=== PATIENT | male | born 1935 | race Caucasian/White ===

== ENCOUNTER 2016-10-07 11:03 | Inpatient (IN) | payer MEDICARE, BC ==
--- NOTE | 2016-10-07 11:52 | RAD ---
INDICATION: Fall COMPARISON: None TECHNIQUE: Noncontrast axial source images were acquired from the skull base to the vertex. FINDINGS: Ventricles/sulci: There is age related cortical atrophy with compensatory dilatation of the CSF spaces. Brain parenchyma: There is minor periventricular and subcortical white matter change compatible with chronic ischemia. Intracranial hemorrhage:None. Extra-axial spaces: There are no abnormal extra axial fluid collections or evidence of extra-axial mass. Calvarium: There is no calvarial fracture or other calvarial abnormality. Scalp: There is no evidence of scalp or extracalvarial soft tissue abnormality. Paranasal sinuses/mastoid: The paranasal sinuses and mastoid air cells are clear. Other: None. IMPRESSION: NO ACUTE INTRACRANIAL FINDINGS
--- NOTE | 2016-10-07 11:55 | RAD ---
INDICATION: Fall. Neck pain COMPARISON: None TECHNIQUE: Noncontrast axial source images was performed from the skull base to the thoracic inlet. Coronal and and sagittal reformatted images were generated. There is some degree of artifact produced by dental amalgam FINDINGS: Vertebrae: There is no fracture or acute focal bony lesion. There is advanced degenerative disc disease from C3 through C7. There is disc space narrowing with endplate sclerosis, anterior vertebral spurring, as a process spurring, and facet arthropathy. There is multilevel foraminal narrowing. Alignment: The craniocervical junction appears normal. There is cervical spine straightening Central Canal: There are no significant CT abnormalities of the central canal or foramina. MR imaging is a more sensitive method to evaluate the canal and foramina. Intervertebral disc spaces: The disc spaces are maintained. Brain: The visualized brain appears unremarkable. Soft tissues: The visualized soft tissue elements of the neck are unremarkable. The prevertebral soft tissues appear normal. The lung apices are clear. IMPRESSION: ADVANCED OSTEOARTHRITIC CHANGE. NO ACUTE FINDINGS.
--- NOTE | 2016-10-07 13:12 | RAD ---
INDICATION: Right knee pain COMPARISON: None TECHNIQUE: AP and crosstable lateral lateral views were obtained. FINDINGS: The bony structures, joint spaces, and soft tissues are normal for age. IMPRESSION: NEGATIVE EXAMINATION.
--- NOTE | 2016-10-07 13:13 | RAD ---
INDICATION: Right femoral pain. Fall. COMPARISON: None TECHNIQUE: AP and lateral views were obtained. FINDINGS: There is no CT evidence of acute traumatic injury. There is right hip prosthesis which appears normally seated. The soft tissues are normal. IMPRESSION: NO ACUTE BONY FINDINGS.
--- NOTE | 2016-10-07 13:14 | PN ---
Progress Note - Progress Note Note: I was asked to repair a laceration to this patient's left elbow. There is a 1cm long, 4mm wide, 4 mm deep linear laceration to the lateral proximal forearm, 1 inch below the olecranon. The area was cleaned with 200 cc of NS. 2 ccs of 2.0 lidocaine was injected into the wound for numbing. The area was draped and one 4.0 polysorb deep stitch was applied. Then 3 nylon 4.0 stitches were placed. The area was cleaned, and dressed with zeroform, clean gauze, and paper tape. The patient tolerated the procedure well.
--- NOTE | 2016-10-07 13:32 | RAD ---
INDICATION: Right elbow pain. Fall. COMPARISON: None TECHNIQUE: AP and lateral views were obtained. FINDINGS: The bony structures, joint spaces, and soft tissues are normal for age. IMPRESSION: NO ACUTE BONY FINDINGS.
[2016-10-07 15:02] LABS: Urine Bilirubin Negative (Negative); Urine Glucose Negative (Negative); Urine Nitrite Negative (Negative)
[2016-10-07] MEDS ORDERED: Acetaminophen TAB* 325 MG PO PRN (16:41)
[2016-10-07 16:42] LABS: BUN/Creatinine Ratio 16.3 (8-20); C Reactive Protein 1.27 mg/L (< 5.00); EGFR African American 88.2 (>60); EGFR Non-African American 68.5 (>60); Globulin 2.7 g/dL (2-4); Potassium 3.8 mmol/L (3.5-5.0); Total Bilirubin 1.1 mg/dL (0.2-1.0); Total Protein 6.7 g/dL (6.4-8.9)
[2016-10-07 16:48] LABS: Hematocrit 47 % (42-52); Hemoglobin 15.6 g/dl (14.0-18.0); Mean Corpuscular HGB Conc 34 g/dl (31-36); Mean Corpuscular Hemoglobin 31 pg (27-31); Mean Corpuscular Volume 93 fL (80-94); Mean Platelet Volume 9 um3 (7.4-10.4); Red Blood Count 4.98 10^6/ul (4.0-5.4); Red Cell Distribution Width 13 % (10.5-15); White Blood Count 12.1 10^3/ul (3.5-10.8)
[2016-10-07] MEDS: Atorvastatin* 10 MG TAB PO SCH (17:55)
--- NOTE | 2016-10-07 17:55 | ED ---
I, Oh,Chata, scribed for Timoteo Pathak MD on 10/07/16 at 1124 . Head Injury - HPI Summary HPI Summary: This 80 y/o male presents to ED via ambulance after falling down the step backward while climbing stairs at [employer]. A fall was witnessed by daughter present at bedside. Daughter and pt deny any LOC after the fall. Pt currently denies any pain, n/v, SOB & CP at the time of fall, back pain, or neck pain. He does report RLE upper thigh pain after the fall. and daughter present at bedside and express concerns on head injury requesting CT brain study. PMHx consists of Stage 3 AD, prostate CA, right total hip replacement, and HLD. Pt does not take any blood thinner but does take baby ASA. FHx is positive for CVA. Family members are unsure if pt is UTD with tetanus. - History Of Current Complaint Chief Complaint: EDHeadInjury Stated Complaint: FALL Time Seen by Provider: 10/07/16 11:09 Hx Obtained From: Patient, Family/Assistant Women'S Rowing Coach - daughter and present at bedside Mechanism Of Injury: Blunt Trauma Onset/Duration: Started Minutes Ago, Traumatic, Resolved Onset of Pain: Immediate Location of Head Injury: Other: - None per pt Associated Signs And Symptoms: Negative Anticoagulant Therapy: ASA - baby ASA - Allergies/Home Medications Allergies/Adverse Reactions: Allergies Allergy/AdvReac Type Severity Reaction Status Date / Time Mirtazapine AdvReac Altered Verified 10/07/16 16:39 Mental Status [place] Apple Allergy See Comment Uncoded 10/07/16 16:16 Home Medications: Home Medications Aspirin [Aspirin Adult Low Strengt] 81 mg PO DAILY WITH MEAL 10/07/16 [History Confirmed 10/07/16] Donepezil Hydrochloride [Aricept 10 MG TAB] 10 mg PO DAILY WITH MEAL 10/07/16 [ History Confirmed 10/07/16] Fluoxetine HCl 40 mg PO DAILY WITH MEAL 10/07/16 [History Confirmed 10/07/16] Memantine TAB* [Namenda TAB*] 10 mg PO BID 10/07/16 [History Confirmed 10/07/16] Multiple Vitamins W/ Minerals [Multivitamin Adults] 1 tab PO DAILY WITH MEAL 03/17 [History Confirmed 10/07/16] Simvastatin TAB(NF) [Zocor(NF)] 20 mg PO 1700 10/07/16 [History Confirmed ] PMH/Surg Hx/FS Hx/Imm Hx Cardiovascular History: Reports: Hx Hypercholesterolemia Neurological History: Reports: Other Neuro Impairments/Disorders - stage 3 alzheimer - Cancer History Cancer Type, Location and Year: prostate CA Infectious Disease History: Denies: Traveled Outside the [place] in Last 30 Days - Family History Known Family History: Positive: Other - CVA - Social History Lives: With Family Hx Substance Use: No Substance Use Type: Reports: None Review of Systems Negative: Fever Negative: Chest Pain Negative: Shortness Of Breath Positive: Other - head injury. RLE upper thigh pain Negative: Syncope All Other Systems Reviewed And Are Negative: Yes Physical Exam - Summary Physical Exam Summary: VITAL SIGNS: Reviewed. GENERAL: Patient is a well developed and nourished male who is lying comfortable in the stretcher. Patient is not in any acute respiratory distress. HEAD AND FACE: No signs of trauma. No ecchymosis, hematomas or skull depressions. No sinus tenderness. EYES: PERRLA, EOMI x 2, No injected conjunctiva, no nystagmus. EARS: Hearing grossly intact. Ear canals and tympanic membranes are within normal limits. No Hemotympanum. MOUTH: Oropharynx within normal limits. NECK: Supple, trachea is midline, no adenopathy, no JVD, no carotid bruit, no c- spine tenderness, neck with full ROM. CHEST: Symmetric, no tenderness at palpation LUNGS: Clear to auscultation bilaterally. No wheezing or crackles. CVS: Regular rate and rhythm, S1 and S2 present, no murmurs or gallops appreciated. ABDOMEN: Soft, non-tender. No signs of distention. No rebound no guarding, and no masses palpated. Bowel sounds are normal. EXTREMITIES: FROM in all major joints, no edema, no cyanosis or clubbing. Slight abrasion on the lateral aspect of the knee. Mild tenderness on the lateral aspect of the thigh . Small laceration in the right elbow. NEURO: Alert and oriented x 3. No acute neurological deficits. Speech is normal and follows commands. SKIN: Dry and warm Triage Information Reviewed: Yes Vital Signs On Initial Exam: Initial Vitals Temp Pulse Resp BP Pulse Ox 98.6 F 66 18 117/57 96 10/07/16 11:07 10/07/16 11:07 10/07/16 11:07 10/07/16 11:07 10/07/16 11:07 Vital Signs Reviewed: Yes Procedures - Laceration/Wound Repair 1 Location: upper extremity - right elbow -- done by RAMONA Hathaway. Please see the progress note. Diagnostics - Vital Signs Vital Signs Temp Pulse Resp BP Pulse Ox 10/07/16 11:07 98.6 F 66 18 117/57 96 - Laboratory Result Diagrams: 10/07/16 16:15 10/07/16 16:15 Lab Statement: Any lab studies that have been ordered have been reviewed, and results considered in the medical decision making process. - Radiology Right Knee Xray Interpretation: No Acute Changes Radiology Interpretation Completed By: Radiologist Right Femur Xray Interpretation: No Acute Changes Radiology Interpretation Completed By: Radiologist Right Elbow Xray Interpretation: No Acute Changes Radiology Interpretation Completed By: Radiologist - CT Brain CT Interpretation: No Acute Changes CT Interpretation Completed By: Radiologist C-spine CT Interpretation: No Acute Changes - Advanced OA changes. No acute disease. CT Interpretation Completed By: Radiologist Re-Evaluation - Re-Evaluation First Eval Re-Evaluation Time: 15:31 Comment: MD in room to update pt and on imaging results and discuss plan of care. Pt had difficulty ambulate around ED, and they are concerned that pt won't be able to care for himself. Second Eval Re-Evaluation Time: 15:51 Comment: MD in room to update pt and on hospitalist consultation. Head Injury Course/Dx Assessment/Plan: This 80 y/o male presents to ED via ambulance after falling down the step backward while climbing stairs at [employer]. A fall was witnessed by daughter present at bedside. Daughter and pt deny any LOC after the fall. Pt currently denies any pain, n/v, SOB & CP at the time of fall, back pain, or neck pain. He does report RLE upper thigh pain after the fall. and daughter present at bedside and express concerns on head injury requesting CT brain study. PMHx consists of Stage 3 AD, prostate CA, right total hip replacement, and HLD. Pt does not take any blood thinner but does take baby ASA. FHx is positive for CVA. Labs wnl except for increase WBC 12.1. Head CT: No acute intracranial pathology. C spine CT: Advanced osteoarthritis changes. No acute findings. Knee X-ray: Negative for an acute Fracture. Femur X ray: Negative for an acute Fracture. ELbow X-ray: Negative for an acute Fracture. In the ED course laceration was repaired By Ms. Beto GREENE. Please see her note. He was given a Boostrix since patient does not remember when was his las vaccine. After negative X-rays we tried to ambulate the patient and he had a lot of pain was not able to ambulate. He was given Morphine and Toradol for the pain. He lives in an apartment that he has to walk 9 stairs and he is unable to get there. I discuss my physical exam, findings and test results with Dr. Lepe from the hospitalist services and she agrees to admit patient to his services. Patient is hemodynamically stable alert and oriented x 2. (His baseline) - Diagnoses Differential Diagnosis/HQI/PQRI: Cervical Sprain, Concussion Without LOC, Contusion, Hematoma, Intracranial Bleed Provider Diagnoses: Fall, Head contusion, Contusion of right knee, Contusion of right elbow, Unable to ambulate - Physician Notifications Discussed Care Of Patient With: Dr. Lepe (Hospitalist) at 1534 PM Instructed by Provider To: Admit As Inpatient Discharge - Discharge Plan Condition: Stable Disposition: ADMITTED TO [facility] The documentation as recorded by the Iker forman Soohyun accurately reflects the service I personally performed and the decisions made by me, Timoteo Pathak MD.
[2016-10-07] MEDS: Memantine TAB* 10 MG PO SCH (21:01)
[2016-10-07] MEDS: Heparin VIAL(*) 5000 UNITS/ML VIAL (FIVE THOUSAND) SUBCUT SCH (21:01)
--- NOTE | 2016-10-08 00:34 | HP ---
HISTORY AND PHYSICAL: DATE OF ADMISSION: 10/07/16 TIME OF EVALUATION: 4:30 p.m. PRIMARY CARE PROVIDER: Dr. Tello. CHIEF COMPLAINT: "He cannot walk" as per . HISTORY OF PRESENT ILLNESS: Mr. Martinez is an 80-year-old male with past medical history of Alzheimer's dementia, prostate CA who presented to the emergency room after sustaining a fall. The patient is pleasantly confused and cannot provide any history and so, his is the one giving information. She states that the patient is confused at baseline and he lives at [facility]. He has a maid that comes twice a day to assist with medication and self-care. Today, his daughter went to pick him up to go to [employer] and when they were going up the front steps of the [employer], the patient lost balance and fell backwards, hitting his head on the way down. The patient states that he does not remember falling and he only remembers being here in the hospital. He was evaluated in the emergency room and he was feeling better, but when they tried to ambulate with him in the emergency room, he was unable to bear weight to his right lower extremity due to pain. So, the hospitalist service was consulted for evaluation. He denies any complaints of pain at this time. No dizziness. No chest pain. No shortness of breath or any other complaints. PAST MEDICAL HISTORY: 1. Alzheimer's dementia. 2. History of prostate CA, status post prostatectomy. 3. Status post right hip fracture and repair. MEDICATIONS: 1. Aspirin 81 mg p.o. daily with meals. 2. Donepezil 10 mg p.o. daily with meals. 3. Fluoxetine 40 mg p.o. daily with meals. 4. Memantine 10 mg p.o. b.i.d. 5. Multivitamin 1 tablet p.o. daily with meals. 6. Simvastatin 20 mg p.o. daily. ALLERGIES: He is allergic to GRANNY BAKER APPLES and as per , he had altered mental status with MIRTAZAPINE. FAMILY HISTORY: As per , the patient's family had a strong history of stroke and late-onset diabetes. SOCIAL HISTORY: The patient used to smoke a pipe. He quit 2 years ago. The also states that he used to be "fond of wine," but now it is very rarely that he has a small glass. Surrogate decision maker is his , Caty Martinez. Her phone number is [phone] (cellphone) and [phone] (home). Please note that the patient's lives in her private home and the patient lives at [facility]. REVIEW OF SYSTEMS: I am unable to obtain from the patient at this point, but with the help of his , all the pertinent negative and positive findings are in the HPI. PHYSICAL EXAMINATION GENERAL: The patient is a pleasantly confused, elderly male, lying in the ER stretcher, in no acute distress. VITAL SIGNS: Temperature 98.6, heart rate is 66, respiratory rate is 18, oxygen saturation 96% on room air, blood pressure is 117/57. HEENT: Pupils are equal. Moist mucous membranes. CHEST: Breath sounds clear bilaterally with no added sounds. CVS: Normal S1, S2. Regular rate and rhythm. ABDOMEN: Soft, nontender, nondistended. Bowel sounds are present. EXTREMITIES: The patient has a clean dressing to his right elbow. He has some abrasions to his right knee. NEUROLOGIC: He is alert, awake, and oriented x2 to self and place. He is able to move all 4 extremities. LABORATORY AND IMAGING DATA: CBC showed a WBC of 12.1, hemoglobin of 15.6, hematocrit of 47, platelets of 197 with 85% neutrophils. Chemistry was normal with only slight elevation of total bilirubin of 1.1. Urinalysis was also normal. CT of the brain without contrast showed no intracranial findings. Cervical spine CT showed advanced osteoarthritic change, but no acute findings. Right femur x-ray showed that the right hip prosthesis appears normally seated with no acute bony findings. Right knee x-ray was also negative examination and right elbow x-ray showed no acute bony findings. ASSESSMENT AND PLAN: Mr. Martinez is an 80-year-old male with a past medical history of Alzheimer's dementia, prostate cancer, status post prostatectomy, who sustained a mechanical fall today and is unable to bear weight to his right extremity at this point. 1. Right lower extremity pain: The patient's workup was negative for fracture and his pain is likely muscular in nature, but he will be unable to return to his apartment at [facility]. The plan is to have him admitted as observation to the medical floor. He will receive Tylenol for pain management and he will be seen by Physical Therapy in the morning and then further plans will be made. He may be able to return to [facility] or he may require rehab. 2. Dementia: We will continue donepezil, fluoxetine, memantine. 3. DVT prophylaxis: The patient has a score of 5 on the DVT Prophylaxis Risk Assessment Guide and he will be started on subcutaneous heparin and SCDs while in bed. 4. Code status was discussed with his and the patient is a do not resuscitate. A MOLST form was filled out to that effect in his chart. TIME SPENT: Approximately 45 minutes were spent with the patient and interview, medical records review, physical examination to complete this admission, more than half this time was spent [id number] with the patient in coordination of care. CC: Dr. Tello * [id number]/[facility] #: [id number] RENEE
[2016-10-08] MEDS: Heparin VIAL(*) 5000 UNITS/ML VIAL (FIVE THOUSAND) SUBCUT SCH ×3 (06:10→21:23)
[2016-10-08] MEDS ORDERED: FLUOXETINE HCL 60 MG PO SCH (08:30)
[2016-10-08] MEDS ORDERED: DONEPEZIL HYDROCHLORIDE PO SCH (08:30)
[2016-10-08] MEDS ORDERED: MINERALS PO SCH (08:30)
[2016-10-08] MEDS ORDERED: MULTIPLE VITAMINS PO SCH (08:30)
[2016-10-08] MEDS: Memantine TAB* 10 MG PO SCH ×2 (08:37→21:23)
[2016-10-08] MEDS: Donepezil TAB* 5 MG PO SCH (08:37)
[2016-10-08] MEDS: Aspirin Low Dose CHEW TAB* 81 MG PO SCH (08:38)
[2016-10-08] MEDS: FLUoxetine CAP* 20 MG PO SCH (08:38)
[2016-10-08] MEDS: Multivitamins/Minerals TAB PO SCH (08:38)
--- NOTE | 2016-10-08 08:41 | PN ---
Subjective Date of Service: 10/08/16 Interval History: Patient reports much improvement today in pain and in ROM in RLE but continues to have right thigh pain and feels slightly unsteady with ambulation with walker. Per he is not at his baseline yet. Objective Active Medications: Acetaminophen (Tylenol Tab*) 650 mg PO Q6H PRN PRN Reason: pain/fever Aspirin (Aspirin Low Dose Tab*) 81 mg PO DAILY WITH MEAL [facility] Atorvastatin Calcium (Lipitor*) 10 mg PO 1700 [facility] Last Admin: 10/07/16 17:55 Dose: 10 mg Donepezil HCl (Aricept Tab*) 10 mg PO DAILY [facility] Fluoxetine HCl (Prozac Cap*) 40 mg PO DAILY [facility] Heparin Sodium (Porcine) (Heparin Vial(*)) 5,000 units SUBCUT Q8HR [facility] Last Admin: 10/08/16 06:10 Dose: 5,000 units Memantine (Namenda Tab*) 10 mg PO BID [facility] Last Admin: 10/07/16 21:01 Dose: 10 mg Multivitamins/Minerals (Theragran/Minerals Tab*) 1 tab PO DAILY [facility] Vital Signs 10/07/16 10/07/16 10/07/16 17:52 18:37 23:19 Temperature 97.9 F 97.9 F 98.3 F Pulse Rate 57 57 61 Respiratory 16 16 16 Rate Blood Pressure 127/69 127/69 123/89 (mmHg) O2 Sat by Pulse 99 99 98 Oximetry 10/08/16 10/08/16 03:04 07:39 Temperature 97.5 F 97.9 F Pulse Rate 62 54 Respiratory 16 18 Rate Blood Pressure 123/59 113/64 (mmHg) O2 Sat by Pulse 93 97 Oximetry Oxygen Devices in Use Now: None Appearance: 80 yo male laying in bed A+O to self and place but not to time, mild dementia noted in NAD Eyes: No Scleral Icterus, PERRLA Ears/Nose/Mouth/Throat: NL Teeth, Lips, Gums, Mucous Membranes Moist Neck: NL Appearance and Movements; NL JVP Respiratory: Symmetrical Chest Expansion and Respiratory Effort, Clear to Auscultation Cardiovascular: NL Sounds; No Murmurs; No JVD, RRR, No Edema Abdominal: NL Sounds; No Tenderness; No Distention Extremities: No Edema, No Clubbing, Cyanosis, - - full ROM in both LE's. slightly guarded with RLE reporting mild pain in later right thigh, right lateral thigh is tender to palpation Skin: - - R elbow abrasion with CD+I dressing, superficial right knee abrasions Neurological: NL Sensation, NL Muscle Strength and Tone Lines/Tubes/Other Access: Clean, Dry and Intact Peripheral IV Nutrition: Taking PO's Result Diagrams: 10/07/16 16:15 10/07/16 16:15 Assess/Plan/Problems-Billing Assessment: 80 yo male with a PMH of Alzheimer's dementia, prostate cancer s/p prostatectomy, who sustained a mechanical fall and is unable to bear weight to hie RLE. - Patient Problems (1) Pain of right lower extremity Comment: - negative for fracture, suspect contusion. Clinically improving. - PT eval, recommends gait belt and walker at all times with stand by assistance. - unsafe to be DC'd to home at this point, will start standing order acetaminophen and lidoderm patch and reassess this afternoon. (2) Alzheimer disease Comment: - continue fluoxetine, memantine and donepezil (3) DVT prophylaxis Comment: HSQ (4) DNR (do not resuscitate) Status and Disposition: OBV for fall unable to ambulate independently.
[2016-10-08] MEDS ORDERED: Memantine TAB* 5 MG PO SCH (09:00)
[2016-10-08] MEDS ORDERED: Acetaminophen TAB* 325 MG PO PRN (11:44)
[2016-10-08] MEDS: Lidocaine PATCH 5%* 1 PATCH TRANSDERM SCH (14:22)
[2016-10-08] MEDS: Atorvastatin* 10 MG TAB PO SCH (16:18)
[2016-10-08] MEDS ORDERED: Lidocaine Patch REMOVE* 1 NOTE MISC SCH (21:00)
[2016-10-08] MEDS: Lidocaine Patch REMOVE* 1 NOTE MISC PATCH OFF SCH (21:26)
[2016-10-09] MEDS: Heparin VIAL(*) 5000 UNITS/ML VIAL (FIVE THOUSAND) SUBCUT SCH ×3 (05:41→22:03)
[2016-10-09] MEDS: Lidocaine PATCH 5%* 1 PATCH TRANSDERM SCH (09:31)
[2016-10-09] MEDS: Donepezil TAB* 5 MG PO SCH (09:31)
[2016-10-09] MEDS: FLUoxetine CAP* 20 MG PO SCH (09:31)
[2016-10-09] MEDS: Multivitamins/Minerals TAB PO SCH (09:32)
[2016-10-09] MEDS: Aspirin Low Dose CHEW TAB* 81 MG PO SCH (09:32)
[2016-10-09] MEDS: Memantine TAB* 10 MG PO SCH ×2 (09:32→22:02)
--- NOTE | 2016-10-09 11:50 | PN ---
Subjective Date of Service: 10/09/16 Interval History: Patient reports continued pain in right thigh but improving daily. Continues to require walker for safety. Per continues to feel unsafe with him going home to the [facility]. Denies another complaints at this time. Pt reports good appetite. Joking around on exam. Objective Active Medications: Acetaminophen (Tylenol Tab*) 975 mg PO Q8H PRN PRN Reason: pain/fever Last Admin: 10/08/16 14:22 Dose: 975 mg Aspirin (Aspirin Low Dose Tab*) 81 mg PO DAILY WITH MEAL [facility] Last Admin: 10/09/16 09:32 Dose: 81 mg Atorvastatin Calcium (Lipitor*) 10 mg PO 1700 [facility] Last Admin: 10/08/16 16:18 Dose: 10 mg Donepezil HCl (Aricept Tab*) 10 mg PO DAILY [facility] Last Admin: 10/09/16 09:31 Dose: 10 mg Fluoxetine HCl (Prozac Cap*) 40 mg PO DAILY [facility] Last Admin: 10/09/16 09:31 Dose: 40 mg Heparin Sodium (Porcine) (Heparin Vial(*)) 5,000 units SUBCUT Q8HR [facility] Last Admin: 10/09/16 05:41 Dose: 5,000 units Lidocaine (Lidoderm 5% Patch*) 1 patch TRANSDERM DAILY [facility] Last Admin: 10/09/16 09:31 Dose: 1 patch Memantine (Namenda Tab*) 10 mg PO BID [facility] Last Admin: 10/09/16 09:32 Dose: 10 mg Multivitamins/Minerals (Theragran/Minerals Tab*) 1 tab PO DAILY [facility] Last Admin: 10/09/16 09:32 Dose: 1 tab Pharmacy Profile Note (Lidocaine Patch Remove*) 1 note PATCH OFF 2100 [facility] Last Admin: 10/08/16 21:26 Dose: 1 note Vital Signs 10/08/16 10/08/16 10/08/16 19:32 20:00 23:27 Temperature 97.4 F 97.8 F Pulse Rate 55 48 Respiratory 18 16 16 Rate Blood Pressure 109/61 118/52 (mmHg) O2 Sat by Pulse 99 97 Oximetry 10/09/16 10/09/16 10/09/16 03:09 07:34 08:00 Temperature 97.4 F 96.5 F Pulse Rate 52 47 Respiratory 16 16 18 Rate Blood Pressure 127/72 137/65 (mmHg) O2 Sat by Pulse 97 100 Oximetry Oxygen Devices in Use Now: None Appearance: eldelry male A+O to self and place but not to time, in NAD, noted dementia Eyes: No Scleral Icterus, PERRLA Ears/Nose/Mouth/Throat: Mucous Membranes Moist Respiratory: Symmetrical Chest Expansion and Respiratory Effort, Clear to Auscultation Cardiovascular: NL Sounds; No Murmurs; No JVD, RRR, No Edema Abdominal: NL Sounds; No Tenderness; No Distention Extremities: No Edema, No Clubbing, Cyanosis Skin: No Rash or Ulcers, No Nodules or Sclerosis, - - tenderness with palpation to right lateral thigh Neurological: NL Sensation, - - gait is unsteady with walker Lines/Tubes/Other Access: Clean, Dry and Intact Peripheral IV Nutrition: Taking PO's Result Diagrams: 10/07/16 16:15 10/07/16 16:15 Assess/Plan/Problems-Billing Assessment: 80 yo male with a PMH of Alzheimer's dementia, prostate cancer s/p prostatectomy, who sustained a mechanical fall and is unable to bear weight to [facility]. - Patient Problems (1) Pain of right lower extremity Comment: - negative for fracture, suspect contusion. Clinically improving daily. - PT eval, recommends gait belt and walker at all times with stand by assistance. - unsafe to be DC'd to home at this point, continue acetaminophen and lidoderm patch (2) Alzheimer disease Comment: - continue fluoxetine, memantine and donepezil (3) DVT prophylaxis Comment: HSQ (4) DNR (do not resuscitate) Status and Disposition: Inpatient for fall unable to ambulate independently. May require subacute
[2016-10-09] MEDS: Atorvastatin* 10 MG TAB PO SCH (16:02)
[2016-10-09] MEDS: Lidocaine Patch REMOVE* 1 NOTE MISC PATCH OFF SCH (22:02)
[2016-10-10] MEDS: Heparin VIAL(*) 5000 UNITS/ML VIAL (FIVE THOUSAND) SUBCUT SCH ×3 (05:30→21:29)
--- NOTE | 2016-10-10 07:08 | PN ---
Subjective Date of Service: 10/10/16 Interval History: Patient continues to have right thigh pain but states it is improving daily. Was able to ambulate with walker today with PT but still felt a little unsteady. Reports good appetite, tolerating PO. Per he is eating more during his hospitalization compared to at home Objective Active Medications: Acetaminophen (Tylenol Tab*) 975 mg PO Q8H PRN PRN Reason: pain/fever Last Admin: 10/08/16 14:22 Dose: 975 mg Aspirin (Aspirin Low Dose Tab*) 81 mg PO DAILY WITH MEAL [facility] Last Admin: 10/09/16 09:32 Dose: 81 mg Atorvastatin Calcium (Lipitor*) 10 mg PO 1700 [facility] Last Admin: 10/09/16 16:02 Dose: 10 mg Donepezil HCl (Aricept Tab*) 10 mg PO DAILY [facility] Last Admin: 10/09/16 09:31 Dose: 10 mg Fluoxetine HCl (Prozac Cap*) 40 mg PO DAILY [facility] Last Admin: 10/09/16 09:31 Dose: 40 mg Heparin Sodium (Porcine) (Heparin Vial(*)) 5,000 units SUBCUT Q8HR [facility] Last Admin: 10/10/16 05:30 Dose: 5,000 units Lidocaine (Lidoderm 5% Patch*) 1 patch TRANSDERM DAILY [facility] Last Admin: 10/09/16 09:31 Dose: 1 patch Memantine (Namenda Tab*) 10 mg PO BID [facility] Last Admin: 10/09/16 22:02 Dose: 10 mg Multivitamins/Minerals (Theragran/Minerals Tab*) 1 tab PO DAILY [facility] Last Admin: 10/09/16 09:32 Dose: 1 tab Pharmacy Profile Note (Lidocaine Patch Remove*) 1 note PATCH OFF 2100 [facility] Last Admin: 10/09/16 22:02 Dose: 1 note Vital Signs 10/09/16 10/09/16 10/09/16 07:34 08:00 15:30 Temperature 96.5 F 98.6 F Pulse Rate 47 50 Respiratory 16 18 18 Rate Blood Pressure 137/65 122/62 (mmHg) O2 Sat by Pulse 100 98 Oximetry 10/09/16 10/09/16 10/09/16 19:26 20:00 23:36 Temperature 98.1 F 98.0 F Pulse Rate 51 50 Respiratory 16 16 20 Rate Blood Pressure 121/60 138/42 (mmHg) O2 Sat by Pulse 96 99 Oximetry Oxygen Devices in Use Now: None Appearance: alert and oriented to self and place but not to time Eyes: No Scleral Icterus, PERRLA Ears/Nose/Mouth/Throat: NL Teeth, Lips, Gums, Mucous Membranes Moist Respiratory: Symmetrical Chest Expansion and Respiratory Effort, Clear to Auscultation Cardiovascular: NL Sounds; No Murmurs; No JVD, RRR, No Edema Abdominal: NL Sounds; No Tenderness; No Distention Extremities: No Edema, No Clubbing, Cyanosis, - - strength 5/5 in all extremities, full rom Skin: No Rash or Ulcers, No Nodules or Sclerosis Neurological: NL Sensation, NL Muscle Strength and Tone, - - alert Lines/Tubes/Other Access: Clean, Dry and Intact Peripheral IV Nutrition: Taking PO's Result Diagrams: 10/07/16 16:15 10/07/16 16:15 Assess/Plan/Problems-Billing Assessment: 80 yo male with a PMH of Alzheimer's dementia, prostate cancer s/p prostatectomy, who sustained a mechanical fall and is unable to bear weight to ile [facility]. - Patient Problems (1) Pain of right lower extremity Comment: - Improving daily. xray negative for fracture, suspect contusion. Clinically improving daily. - PT eval, recommends gait belt and walker at all times with stand by assistance. - unsafe to be DC'd to home at this point, continue acetaminophen and lidoderm patch - plan for subacute (2) Alzheimer disease Comment: - continue fluoxetine, memantine and donepezil (3) DVT prophylaxis Comment: HSQ (4) DNR (do not resuscitate) Status and Disposition: Inpatient for fall unable to ambulate independently. Plan for subacute
[2016-10-10] MEDS: Lidocaine PATCH 5%* 1 PATCH TRANSDERM SCH (08:16)
[2016-10-10] MEDS: Multivitamins/Minerals TAB PO SCH (08:18)
[2016-10-10] MEDS: Aspirin Low Dose CHEW TAB* 81 MG PO SCH (08:18)
[2016-10-10] MEDS: Memantine TAB* 10 MG PO SCH ×2 (08:19→21:29)
[2016-10-10] MEDS: FLUoxetine CAP* 20 MG PO SCH (08:19)
[2016-10-10] MEDS: Donepezil TAB* 5 MG PO SCH (08:19)
[2016-10-10] MEDS: Atorvastatin* 10 MG TAB PO SCH (17:33)
[2016-10-10] MEDS: Lidocaine Patch REMOVE* 1 NOTE MISC PATCH OFF SCH (21:29)
[2016-10-11] MEDS: Heparin VIAL(*) 5000 UNITS/ML VIAL (FIVE THOUSAND) SUBCUT SCH (05:21)
--- NOTE | 2016-10-11 08:32 | DCNOTE ---
Subjective Date of Service: 10/11/16 Interval History: patient reports "im getting better everyday but still have some pain in right thigh with walking". Reports his appetite has been better here than at home and has been eating well. Denies any pain at rest. No SOB or CP. Objective Active Medications: Acetaminophen (Tylenol Tab*) 975 mg PO Q8H PRN PRN Reason: pain/fever Last Admin: 10/08/16 14:22 Dose: 975 mg Aspirin (Aspirin Low Dose Tab*) 81 mg PO DAILY WITH MEAL [facility] Last Admin: 10/10/16 08:18 Dose: 81 mg Atorvastatin Calcium (Lipitor*) 10 mg PO 1700 [facility] Last Admin: 10/10/16 17:33 Dose: 10 mg Donepezil HCl (Aricept Tab*) 10 mg PO DAILY [facility] Last Admin: 10/10/16 08:19 Dose: 10 mg Fluoxetine HCl (Prozac Cap*) 40 mg PO DAILY [facility] Last Admin: 10/10/16 08:19 Dose: 40 mg Heparin Sodium (Porcine) (Heparin Vial(*)) 5,000 units SUBCUT Q8HR [facility] Last Admin: 10/11/16 05:21 Dose: 5,000 units Lidocaine (Lidoderm 5% Patch*) 1 patch TRANSDERM DAILY [facility] Last Admin: 10/10/16 08:16 Dose: 1 patch Memantine (Namenda Tab*) 10 mg PO BID [facility] Last Admin: 10/10/16 21:29 Dose: 10 mg Multivitamins/Minerals (Theragran/Minerals Tab*) 1 tab PO DAILY [facility] Last Admin: 10/10/16 08:18 Dose: 1 tab Pharmacy Profile Note (Lidocaine Patch Remove*) 1 note PATCH OFF 2100 [facility] Last Admin: 10/10/16 21:29 Dose: 1 note Vital Signs 10/10/16 10/10/16 10/10/16 15:53 20:00 23:20 Temperature 97.4 F 97.4 F Pulse Rate 52 57 Respiratory 15 18 18 Rate Blood Pressure 118/61 121/56 (mmHg) O2 Sat by Pulse 99 97 Oximetry Oxygen Devices in Use Now: None Appearance: 80 yo male sitting up in a chair in NAD. alert to self and place but not to time, mild dementia noted Eyes: No Scleral Icterus, PERRLA Ears/Nose/Mouth/Throat: NL Teeth, Lips, Gums, Mucous Membranes Moist Neck: NL Appearance and Movements; NL JVP Respiratory: Symmetrical Chest Expansion and Respiratory Effort, Clear to Auscultation Cardiovascular: NL Sounds; No Murmurs; No JVD, RRR, No Edema Abdominal: NL Sounds; No Tenderness; No Distention Extremities: No Edema, No Clubbing, Cyanosis, - - strrength 5/5 throughout Skin: No Rash or Ulcers, No Nodules or Sclerosis Neurological: NL Sensation, NL Muscle Strength and Tone Lines/Tubes/Other Access: Clean, Dry and Intact Peripheral IV Nutrition: Taking PO's Result Diagrams: 10/07/16 16:15 10/07/16 16:15 Assess/Plan/Problems-Billing Assessment: 80 yo male with a PMH of Alzheimer's dementia, prostate cancer s/p prostatectomy, who sustained a mechanical fall and is unable to bear weight to [facility]. - Patient Problems (1) Pain of right lower extremity Comment: - Improving daily. xray negative for fracture, suspect contusion. Clinically improving daily. - PT eval, recommends gait belt and walker at all times with stand by assistance. - unsafe to be DC'd to home at this point, continue acetaminophen and lidoderm patch - plan for subacute (2) Alzheimer disease Comment: - continue fluoxetine, memantine and donepezil (3) DVT prophylaxis Comment: HSQ (4) DNR (do not resuscitate) Status and Disposition: Inpatient for fall unable to ambulate independently. Plan for subacute, DC to [facility] today
[2016-10-11 08:43] VITALS: BP 122/55
--- NOTE | 2016-10-11 09:38 | DS ---
DISCHARGE SUMMARY: DATE OF ADMISSION: 10/07/16 DATE OF DISCHARGE: 10/11/16 PROVIDER: Gloria Rojo NP ATTENDING PHYSICIAN: Lakesha Holliday DO *(report dictated by Gloria Rojo NP) PRIMARY CARE PROVIDER: Dr. Tello DISPOSITION: Discharge to [facility] for subacute rehab. PRIMARY DIAGNOSIS: Fall with right lower extremity pain causing unsteady gait, unsafe to return to independent living, requiring subacute rehab, suspect upper thigh contusion. SECONDARY DIAGNOSES: 1. Alzheimer's dementia. 2. History of prostate cancer, status post prostatectomy. 3. Status post right hip fracture and repair. HISTORY OF PRESENT ILLNESS AND HOSPITAL COURSE: Please see history and physical by Dr. Kunz for full admission details, but in summary, this is an 80 -year-old male with a past medical history of Alzheimer's dementia, who presented to emergency department after sustaining a mechanical fall. The patient was living in [place] in the independent living. The patient's family is very involved in his care. His daughter had picked the patient up for shinto and the patient was going up the front steps of the shinto and he lost his balance and fell backwards, hitting his head on the way down. He was brought to the emergency department by ambulance. In the emergency department, he underwent a brain CT, which was negative for acute intracranial findings. Cervical spine CT showed "advanced osteoarthritic change with no acute findings " and no fractures noted. As well, he underwent a femur, knee, and elbow x-ray of his right side, which showed no acute fractures. The patient has done well throughout hospitalization improving daily with ambulation and able to bear weight, as on initial admission the patient could not bear weight on his right lower extremity. The patient has been able to bear weight as of his day #2 of hospitalization, but he is noted to have a slight limp, reporting that it is tender when he ambulates. This has improved greatly over his hospitalization, but he is noted to be unsafe to return to independent living without subacute rehab first. Due to the patient's dementia , it is difficult for the patient to use the walker in a safe manner and there were concerns about sending him home to independent living. There is no noted hematoma or bruising. I suspect he has a right lateral thigh contusion. He has good strength and range of motion in his right lower extremity. The patient has remained afebrile and hemodynamically stable throughout hospitalization. His labs were fairly unremarkable. The patient has been seen and evaluated by Physical Therapy every day of his admission, who recommends subacute rehab to help the patient return to his baseline to return to independent living. DISCHARGE MEDICATIONS: 1. Simvastatin 20 mg p.o. daily. 2. Namenda 10 mg p.o. b.i.d. 3. Fluoxetine HCL 60 mg p.o. daily with meals. 4. Aricept 10 mg p.o. daily with meal. 5. Aspirin 81 mg p.o. daily with meal. 6. Multivitamin with minerals one tab p.o. daily with meal. 7. Acetaminophen 975 mg p.o. q.8 hours p.r.n. 8. Lidoderm 5% patch, one patch transderm daily to right lateral thigh. DISCHARGE PLAN: The patient will be discharged to [place] for subacute rehab. The patient's and family agrees with this plan of care. TIME SPENT: Approximately 42 minutes was spent on this discharge. GLORIA ROJO NP CC: Dr. Tello* [id number]/[facility] #: [id number] RENEE
[2016-10-11] MEDS: Memantine TAB* 10 MG PO SCH (10:12)
[2016-10-11] MEDS: Donepezil TAB* 5 MG PO SCH (10:12)
[2016-10-11] MEDS: FLUoxetine CAP* 20 MG PO SCH (10:12)
[2016-10-11] MEDS: Lidocaine PATCH 5%* 1 PATCH TRANSDERM SCH (10:13)
[2016-10-11] MEDS: Aspirin Low Dose CHEW TAB* 81 MG PO SCH (10:26)
[2016-10-11] MEDS: Multivitamins/Minerals TAB PO SCH (10:27)
== END 2016-10-11 11:45 | DRG 605 ==
LOC: ED 11:03 → MED 15:36 → OBSVTOIN 10-08 16:00
PROVIDERS: ADMIT Internal Medicine; ATTEND Hospitalist
PROC: 0HQEXZZ Repair Left Lower Arm Skin, External Approach (ICD-10-PCS; principal; 2016-10-08)
DX: S70.11XA Contusion of right thigh, initial encounter (principal); G30.9 Alzheimer's disease, unspecified; F02.80 Dementia in other diseases classified elsewhere, unspecified severity, without behavioral disturbance, psychotic disturbance, mood disturbance, and anxiety; Z85.46 Personal history of malignant neoplasm of prostate; Z96.641 Presence of right artificial hip joint; E78.5 Hyperlipidemia, unspecified; Z82.3 Family history of stroke; Z88.8 Allergy status to other drugs, medicaments and biological substances; Z91.018 Allergy to other foods; Z83.3 Family history of diabetes mellitus; Z87.891 Personal history of nicotine dependence; S51.012A Laceration without foreign body of left elbow, initial encounter; W10.9XXA Fall (on) (from) unspecified stairs and steps, initial encounter; Y92.22 Religious institution as the place of occurrence of the external cause; M47.892 Other spondylosis, cervical region; Z79.82 Long term (current) use of aspirin
CPT/HCPCS: 36415; 70450; 72125; 80053; 81003; 85025; 86140; A9270-GY; G0378; G8978-GP-CJ; G8979-GP-CI; G8980-GP-CJ; J1644

== ENCOUNTER → 2018-04-30 13:20 | Emergency (ER) | payer MEDICARE, BC ==
[~2018-04-30 13:20] MED LIST: NS 0.9% 1000 ML* 1,000 ML IV ONE
--- NOTE | 2018-04-30 14:08 | ED ---
Lower Extremity - HPI Summary HPI Summary: This patient is an 82 year old M brought in by ambulance to ED with a chief complaint of R knee pain s/p slipping and falling - unwitnessed. The patient has Alzheimers and is very confused and altered per the nurse. The patient believes he goes to [place] but he actually lives in an assisted living home. The patient rates the pain 5/10 in severity. Symptoms aggravated by nothing. Symptoms alleviated by nothing. Patient denies head trauma, LOC, CP, and SOB. - History of Current Complaint Chief Complaint: EDExtremityLower Stated Complaint: KNEE PAIN FALL Time Seen by Provider: 04/30/18 13:33 Hx Obtained From: Patient Mechanism Of Injury: Fall From A Standing Position Onset of Pain: Immediate Onset/Duration: Still Present Severity Initially: Moderate Severity Currently: Moderate Pain Intensity: 5 Pain Scale Used: 0-10 Numeric Timing: Constant Location: Is Discrete @ - R knee Associated Signs And Symptoms: Negative: Syncope Aggravating Factor(s): Nothing Alleviating Factor(s): Nothing - Allergies/Home Medications Allergies/Adverse Reactions: Allergies Allergy/AdvReac Type Severity Reaction Status Date / Time MS Mirtazapine [Mirtazapine] AdvReac Altered Verified 10/07/16 16:39 Mental Status [place] [facility] Allergy See Comment Uncoded 10/07/16 16:16 PMH/Surg Hx/FS Hx/Imm Hx Endocrine/Hematology History: Denies: Hx Diabetes Cardiovascular History: Reports: Hx Hypercholesterolemia Sensory History: Reports: Hx Hearing Aid Denies: Hx Contacts or Glasses Opthamlomology History: Denies: Hx Contacts or Glasses Neurological History: Reports: Other Neuro Impairments/Disorders - stage 3 alzheimer - Cancer History Cancer Type, Location and Year: prostate CA Infectious Disease History: Unable to Obtain/Confirm Infectious Disease History: Denies: Traveled Outside the [place] in Last 30 Days - Family History Known Family History: Positive: Other - CVA - Social History Alcohol Use: None Hx Substance Use: No Substance Use Type: Reports: None Smoking Status (MU): Former Smoker Review of Systems Negative: Chest Pain Negative: Shortness Of Breath Positive: Other - denies head trauma Negative: Syncope Positive: Other - patient has Alzheimer's All Other Systems Reviewed And Are Negative: Yes Physical Exam - Summary Physical Exam Summary: GENERAL: Patient is a well-developed and nourished M who is lying comfortable in the stretcher. Patient is not in any acute respiratory distress. HEAD AND FACE: Normocephalic EYES: PERRLA, EOMI x 2. EARS: Hearing grossly intact. MOUTH: Oropharynx within normal limits. NECK: Supple, trachea is midline, no adenopathy, no JVD, no carotid bruit. CHEST: Symmetric, no tenderness at palpation LUNGS: Clear to auscultation bilaterally. No wheezing or crackles. CVS: Regular rate and rhythm, S1 and S2 present, no murmurs or gallops appreciated. ABDOMEN: Soft, non-tender. Bowel sounds are normal. No abdominal abnormal pulsations. EXTREMITIES: Full ROM in all major joints, no edema, no cyanosis or clubbing. Tender to palpation of R knee. NEURO: Alert and oriented x 3. No acute neurological deficits. Speech is normal and follows commands. SKIN: Dry and warm GCS: 14 Triage Information Reviewed: Yes Vital Signs On Initial Exam: Initial Vitals Temp Pulse Resp BP Pulse Ox 98.9 F 54 16 122/62 99 04/30/18 13:30 04/30/18 13:30 04/30/18 13:30 04/30/18 13:30 04/30/18 13:30 Vital Signs Reviewed: Yes Diagnostics - Vital Signs Vital Signs Temp Pulse Resp BP Pulse Ox 04/30/18 13:30 98.9 F 54 16 122/62 99 - Laboratory Result Diagrams: 04/30/18 15:48 04/30/18 15:48 Lab Statement: Any lab studies that have been ordered have been reviewed, and results considered in the medical decision making process. - Radiology R knee XR Radiology Interpretation Completed By: Radiologist - OSTEOPENIA. NO ACUTE OSSEOUS INJURY. IF SYMPTOMS PERSIST, RECOMMEND REPEAT IMAGING. Dr. Plaza has reviewed this radiology report. CXR Radiology Interpretation Completed By: Radiologist - NO ACTIVE CARDIOPULMONARY DISEASE. Dr. Plaza has reviewed this radiology report. - CT Brain CT CT Interpretation Completed By: Radiologist - No obvious intracranial mass or hemorrhage. Motion artifact degrades the images. Dr. Plaza has reviewed this radiology report. - EKG 1505 Cardiac Rate: Bradycardia - 53 BPM EKG Rhythm: Sinus Bradycardia Summary of EKG Findings: L axis deviation Re-Evaluation - Re-Evaluation First Eval Re-Evaluation Time: 15:50 Comment: The patient's aide came by and told me that the patient's , Caty, does not want any workup done without contacting her first. The is on the way. Second Eval Re-Evaluation Time: 16:42 Comment: Discussed with the patient about his results and plan for discharge. Lower Extremity Course/Dx - Course Assessment/Plan: This patient is an 82 year old M brought in by ambulance to ED with a chief complaint of R knee pain s/p slipping and falling. In the ED course , the patient was given fluids. R knee XR reveals OSTEOPENIA. NO ACUTE OSSEOUS INJURY. IF SYMPTOMS PERSIST, RECOMMEND REPEAT IMAGING. CXR reveals NO ACTIVE CARDIOPULMONARY DISEASE. Brain CT reveals No obvious intracranial mass or hemorrhage. Motion artifact degrades the images. EKG done at 1505 reveals sinus cash at 53 BPM and L axis deviation. I discussed results with patient and he reports feeling better. He is hemodynamically stable and safe for discharge. Strict return precautions given and he will otherwise follow up with his PCP. - Diagnoses Provider Diagnoses: Fall, Right knee injury Discharge - Sign-Out/Discharge Documenting (check all that apply): Patient Departure - discharge - Discharge Plan Condition: Stable Disposition: HOME Patient Education Materials: Fall Prevention for Older Adults (ED), Knee Pain ( ED) Referrals: Young Tello MD [Primary Care Provider] - (Follow up with your primary care physician in 1-3 days.) Additional Instructions: Follow up with your primary care physician in 1-3 days. RETURN TO THE EMERGENCY DEPARTMENT FOR CHANGING OR WORSENING SYMPTOMS. - Billing Disposition and Condition Condition: STABLE Disposition: Home - Attestation Statements Document Initiated by Scribe: Yes Documenting Scribe: Polo Mcmullen Provider For Whom Abram is Documenting (Include Credential): Brunilda Plaza MD Scribe Attestation: IPolo, scribed for Brunilda Plaza MD on 05/02/18 at 0430. Scribe Documentation Reviewed: Yes Provider Attestation: The documentation as recorded by the Polo forman accurately reflects the service I personally performed and the decisions made by me, Brunilda Plaza MD
--- NOTE | 2018-04-30 14:44 | RAD ---
HISTORY: syncope COMPARISONS: April 10, 2005 VIEWS: 1: frontal AP view of the chest at 2:27 PM FINDINGS: LINES AND TUBES: None. CARDIOMEDIASTINAL SILHOUETTE: The cardiomediastinal silhouette is normal for portable technique. PLEURA: The costophrenic angles are sharp. No pleural abnormalities are noted. LUNG PARENCHYMA: The lungs are clear. ABDOMEN: The upper abdomen is clear. There is no subphrenic gas. BONES AND SOFT TISSUES: No bone or soft tissue abnormalities are noted. IMPRESSION: NO ACTIVE CARDIOPULMONARY DISEASE.
--- NOTE | 2018-04-30 14:44 | RAD ---
HISTORY: fall, right knee pain COMPARISONS: October 07, 2016 VIEWS: 4 , Frontal, crosstable lateral, axial, and oblique views of the right knee FINDINGS: BONE DENSITY: There is diffuse osteopenia. BONES: There is no displaced fracture. JOINTS: There is no arthropathy. There is no suprapatellar joint effusion or lipohemarthrosis. ALIGNMENT: There is no dislocation. SOFT TISSUES: Unremarkable. OTHER FINDINGS: None. IMPRESSION: OSTEOPENIA. NO ACUTE OSSEOUS INJURY. IF SYMPTOMS PERSIST, RECOMMEND REPEAT IMAGING.
--- NOTE | 2018-04-30 15:00 | RAD ---
Indication: Head injury. CT of the brain performed without IV contrast. Ventricular structures are midline. No midline shift is noted. The extra-axial spaces are prominent. 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 There is no evidence of intracranial mass or hemorrhage. No other high or low density lesions are identified. Mastoid air cells and paranasal sinuses are otherwise unremarkable. There is some motion artifact which degrades images. IMPRESSION: No obvious intracranial mass or hemorrhage. Motion artifact degrades the images.
[2018-04-30 15:53] LABS: Urine Appearance Cloudy; Urine Blood Negative (Negative); Urine Color Yellow; Urine Ketones Negative (Negative); Urine Protein Negative (Negative); Urine Specific Gravity 1.017 (1.010-1.030); Urine Urobilinogen Negative (Negative)
[2018-04-30 16:00] LABS: ABS Basophils 0 10^3/ul (0-0.2); ABS Eosinophils 0.2 10^3/ul (0-0.6); ABS Lymphocytes 1.9 10^3/ul (1.0-4.8); ABS Monocytes 0.5 10^3/ul (0-0.8); ABS Neutrophils 5.1 10^3/ul (1.5-7.7); ABS Nucleated RBC 0 10^3/ul; Eosinophil % 2.5 % (0-6); Hematocrit 45 % (42-52); Hemoglobin 15.3 g/dl (14.0-18.0); Lymphocyte % 24.8 % (25-47); Mean Corpuscular HGB Conc 34 g/dl (31-36); Mean Corpuscular Hemoglobin 32 pg (27-31); Mean Corpuscular Volume 94 fL (80-94); Mean Platelet Volume 8.4 um3 (7.4-10.4); Nucleated Red Blood Cells % 0.1; Platelet Count 206 10^3/ul (150-450); Red Cell Distribution Width 13 % (10.5-15); White Blood Count 7.8 10^3/ul (3.5-10.8)
[2018-04-30 16:19] LABS: INR 0.86 (0.77-1.02)
[2018-04-30 17:08] LABS: EGFR Non-African American 60.7 (>60)
[2018-04-30 18:05] VITALS: BP 112/74
== END | disposition home or self-care (01) ==
LOC: ED 13:20
DX: S89.91XA Unspecified injury of right lower leg, initial encounter (principal); E78.00 Pure hypercholesterolemia, unspecified; Z87.891 Personal history of nicotine dependence; G30.9 Alzheimer's disease, unspecified; W01.0XXA Fall on same level from slipping, tripping and stumbling without subsequent striking against object, initial encounter; Y92.099 Unspecified place in other non-institutional residence as the place of occurrence of the external cause; Z85.46 Personal history of malignant neoplasm of prostate; M85.80 Other specified disorders of bone density and structure, unspecified site
CPT/HCPCS: 36415; 70450; 71045; 80053; 81003; 83605; 83735; 84443; 84484; 85025; 85610; 85730; 93005; 96360; 99282

== ENCOUNTER 2019-07-19 10:05 | Emergency (ER) | payer MEDICARE, BC ==
--- NOTE | 2019-07-19 10:08 | ED ---
Complex/Multi-Sys Presentation - HPI Summary HPI Summary: 83 y/o male presented to [facility] by [facility] after vomiting and diarrhea present since yeterday. Pt states he is in no pain and denies cough, sore throat , and dysuria. Medications reviewed. Allergies noted. Pt is a lever 5 caveat secondary to dementia. - History Of Current Complaint Time Seen by Provider: 07/19/19 10:06 Hx Obtained From: Patient Hx From Patient Unobtainable Due To: Dementia Associated Signs And Symptoms: Positive: Vomiting, Diarrhea, Other - negative cough. Negative: Cough, Dysuria - Allergies/Home Medications Allergies/Adverse Reactions: Allergies Allergy/AdvReac Type Severity Reaction Status Date / Time MS Mirtazapine [Mirtazapine] AdvReac Altered Verified 10/07/16 16:39 Mental Status [place] Allergy See Comment Uncoded 10/07/16 16:16 PMH/Surg Hx/FS Hx/Imm Hx Endocrine/Hematology History: Denies: Hx Diabetes Cardiovascular History: Reports: Hx Hypercholesterolemia Sensory History: Reports: Hx Hearing Aid Denies: Hx Contacts or Glasses Opthamlomology History: Denies: Hx Contacts or Glasses Neurological History: Reports: Other Neuro Impairments/Disorders - stage 3 alzheimer - Cancer History Cancer Type, Location and Year: prostate CA - Family History Known Family History: Positive: Other - CVA - Social History Alcohol Use: None Hx Substance Use: No Substance Use Type: Reports: None Smoking Status (MU): Former Smoker Review of Systems - ROS Summary Review of Systems Summary: Pt is a level 5 caveat secondary to dementia. Negative: Sore Throat Negative: Cough Positive: Vomiting, Diarrhea Negative: dysuria All Other Systems Reviewed And Are Negative: No Physical Exam - Summary Physical Exam Summary: Constitutional: Well-developed, Well-nourished, Alert. (-) Distressed Skin: Warm, Dry HENT: Normocephalic; Atraumatic, Orall MM dry Eyes: Conjunctiva normal Neck: Musculoskeletal ROM normal neck. (-) JVD, (-) Stridor, (-) Tracheal deviation Cardio: Rhythm regular, rate normal, Heart sounds normal; Intact distal pulses; Radial pulses are 2+ and symmetric. (-) Murmur Pulmonary/Chest wall: Effort normal. (-) Respiratory distress, (-) Wheezes, (-) Rales Abd: Soft, (-) tenderness, (-) Distension, (-) Guarding, (-) Rebound Musculoskeletal: (-) Edema Lymph: (-) Cervical adenopathy Neuro: Alert, Does not answer questions appropriately Psych: Mood and affect Normal Triage Information Reviewed: Yes Vital Signs Reviewed: Yes Procedures - Sedation Patient Received Moderate/Deep Sedation with Procedure: No Diagnostics - Laboratory Result Diagrams: 07/19/19 10:26 07/19/19 10:26 Lab Statement: Any lab studies that have been ordered have been reviewed, and results considered in the medical decision making process. - Radiology cxr Radiology Interpretation Completed By: Radiologist Summary of Radiographic Findings: IMPRESSION: 1. Left lower lobe airspace opacification (concerning for infiltrate). 2. Curvilinear lucency under the left hemidiaphragm could BE within bowel. If clinically. This report was reviewed by the ED physician. abd xray Radiology Interpretation Completed By: Radiologist Summary of Radiographic Findings: IMPRESSION: No radiographic evidence of pneumoperitoneum. This report was reviewed by the ED physician. Re-Evaluation - Re-Evaluation First Eval Re-Evaluation Time: 13:40 Comment: Pt is starting PO challenge. is okay with starting abx. Second Eval Re-Evaluation Time: 14:08 Comment: Pt is tolerating PO and will be discharged. Complex Multi-Symp Course/Dx Course Of Treatment: Patient is here with vomiting, diarrhea, and fever. Upon arrival, patient is obviously demented but is overall well-appearing. Patient denies any complaints. Patient has no abdominal tenderness and had no episodes of vomiting or diarrhea while in the ED. Patient motor performed which was grossly unremarkable. Patient had a chest x-ray which showed an early pneumonia. Patient's medical power of assistant county attorney, his , was in the room. They wanted to try oral antibiotics. Patient's chest x-ray did show possible pneumo peritoneum so a lateral decubitus was obtained which was negative. Patient is discharged back to his half-way - Diagnoses Provider Diagnoses: Vomiting, Fever Discharge ED - Sign-Out/Discharge Documenting (check all that apply): Patient Departure - dc - Discharge Plan Condition: Stable Disposition: HOME Prescriptions: Amoxicillin/Clavulanate TAB* [Augmentin TAB 875*] 875 mg PO BID 7 Days #14 tab Azithromycin TAB* [Zithromax TAB (Z-LYNSEY) 250 mg #6 tabs] 250 mg PO DAILY 6 Days #6 tab Patient Education Materials: Fever in Adults (ED) Referrals: Young Tello MD [Primary Care Provider] - Additional Instructions: PLEASE RETURN TO EMERGENCY DEPARTMENT IF YOU HAVE DIFFICULTY BREATHING, ARE NOT FUNCTIONING AT YOUR BASELINE MENTAL STATE, CANNOT TOLERATE FLUIDS, OR HAVE OTHER CONCERNS. Please take our antibiotics as directed and follow up with your primary care physician. Please make all follow-ups in 1-3 days unless I advise you otherwise. - Billing Disposition and Condition Condition: STABLE Disposition: Home - Attestation Statements Document Initiated by Abram: Yes Documenting Scribe: Anibal Altman Provider For Whom Abram is Documenting (Include Credential): Hilton Patel MD Scribe Attestation: Anibal Schwarz, scribed for Hilton Patel MD on 07/19/19 at 1810. Scribe Documentation Reviewed: Yes Provider Attestation: The documentation as recorded by the Anibal forman accurately reflects the service I personally performed and the decisions made by , Hilton Patel MD Status of Scribe Document: Viewed
[2019-07-19 10:33] LABS: ABS Lymphocytes 0.6 10^3/ul (1.0-4.8); ABS Monocytes 0.4 10^3/ul (0-0.8); Eosinophil % 0.4 %; Hematocrit 42 % (42-52); Hemoglobin 14.5 g/dL (14.0-18.0); Lymphocyte % 9.6 %; Mean Corpuscular HGB Conc 34 g/dL (31-36); Mean Corpuscular Hemoglobin 31 pg (27-31); Mean Corpuscular Volume 90 fL (80-94); Mean Platelet Volume 8.3 fL (7.4-10.4); Platelet Count 229 10^3/uL (150-450); Red Cell Distribution Width 13 % (10-15)
[2019-07-19 10:52] LABS: ALT 15 U/L (7-52); AST 19 U/L (13-39); Albumin 3.6 g/dL (3.2-5.2); Albumin/Globulin Ratio 1.2 (1-3); Alkaline Phosphatase 91 U/L (34-104); Anion Gap 5 mmol/L (2-11); Blood Urea Nitrogen 18 mg/dL (6-24); C Reactive Protein 21.85 mg/L (<8.01); CO2 Carbon Dioxide 26 mmol/L (22-32); Calcium 8.3 mg/dL (8.6-10.3); Chloride 107 mmol/L (101-111); EGFR African American 69.8 (>60); EGFR Non-African American 57.7 (>60); Globulin 2.9 g/dL (2-4); Glucose 99 mg/dL (70-100); Sodium 138 mmol/L (135-145); Total Protein 6.5 g/dL (6.4-8.9)
[2019-07-19 11:01] LABS: Influenza A Molecular NEGATIVE (Negative); Influenza B Molecular NEGATIVE (Negative)
[2019-07-19] MEDS: Amoxicillin/Clavulanate TAB* 875 MG PO ONE ×2 (12:37→13:45)
[2019-07-19] MEDS: Azithromycin TAB* 250 MG PO ONE ×2 (12:37→13:45)
[2019-07-19 14:45] VITALS: BP 136/72
== END 2019-07-19 14:44 | disposition home or self-care (01) ==
LOC: ED 10:05
DX: R11.10 Vomiting, unspecified (principal); R50.9 Fever, unspecified; E78.00 Pure hypercholesterolemia, unspecified; G30.9 Alzheimer's disease, unspecified; F02.80 Dementia in other diseases classified elsewhere, unspecified severity, without behavioral disturbance, psychotic disturbance, mood disturbance, and anxiety; Z87.891 Personal history of nicotine dependence; Z85.46 Personal history of malignant neoplasm of prostate; Z88.8 Allergy status to other drugs, medicaments and biological substances
CPT/HCPCS: 36415; 71046; 74018; 80053; 83605; 83690; 85025; 86140; 99283; A9270-GY